=== PATIENT | female | born 1985 | race Caucasian/White ===

== ENCOUNTER 2019-08-17 02:15 | Inpatient (IN) | payer BC ==
[~2019-08-17 02:15] MED LIST: Bupivacaine 0.25% 10 ML SDV ONE
[2019-08-17] MEDS ORDERED: Nalbuphine 10 MG/ML Syringe IVPUSH PRN (03:03)
[2019-08-17] MEDS ORDERED: Lidocaine 1% 50 ML MDV INJECT ONE (03:03)
[2019-08-17] MEDS ORDERED: Sodium Chloride 0.9% 10 ML Syringe FLUSH PRN (03:03)
[2019-08-17] MEDS ORDERED: Ondansetron 4 MG/2 ML SDV IVPUSH PRN (03:03)
[2019-08-17] MEDS ORDERED: Calcium Carbonate 500 MG Tab.Chew PO PRN (03:03)
[2019-08-17] MEDS ORDERED: Oxytocin/Lactated Ringers 10 UNIT/1,000 ML BAG IV SCH (03:15)
[2019-08-17] MEDS: Lactated Ringers 1,000 ML IV SCH ×4 (03:43→17:07)
[2019-08-17] MEDS: Oxytocin/Lactated Ringers 10 UNIT/1,000 ML BAG IV SCH ×2 (03:44→17:06)
[2019-08-17] MEDS ORDERED: fentaNYL 100 MCG/2 ML SDV EPIDUR PRN (05:14)
[2019-08-17] MEDS ORDERED: fentaNYL/Bupivacaine/NS 2 MCG-0.125% 250 ML EPIDUR PRN (05:14)
[2019-08-17] MEDS ORDERED: diphenhydrAMINE 50 MG/ML SDV IVPUSH PRN (05:14)
[2019-08-17] MEDS ORDERED: ePHEDrine 50 MG/ML SDV IVPUSH PRN (05:14)
[2019-08-17] MEDS: Bupivacaine/fentaNYL/NS 100 ML Bag EPIDUR PRN ×2 (05:29→17:02)
--- NOTE | 2019-08-17 05:46 | PCM.PREANE ---
Preanesthetic Assessment - Procedure Proposed Procedure: epidural - Anesthesia/Transfusion/Family Hx Anesthesia History: Prior Anesthesia Without Reaction Family History of Anesthesia Reaction: No Transfusion History: No Prior Transfusion(s) - Review of Systems General: Fatigue Pulmonary: No Symptoms Cardiovascular: No Symptoms Gastrointestinal: Abdominal Pain (labor) Neurological: No Symptoms Other: Reports: None - Physical Assessment Vital Signs: Last Vital Signs Temp 36.5 C 08/17/19 02:28 Pulse 62 08/17/19 02:28 Resp 16 08/17/19 02:28 BP 143/71 H 08/17/19 02:28 Pulse Ox 100 08/17/19 02:28 Height: 1.75 m Weight: 104.689 kg ASA Class: 2 Mental Status: Alert & Oriented x3 Airway Class: Mallampati = 1 Dentition: Reports: Normal Dentition Thyro-Mental Finger Breadths: 3 Mouth Opening Finger Breadths: 3 ROM/Head Extension: Full Lungs: Clear to Auscultation, Normal Respiratory Effort Cardiovascular: Regular Rate, Regular Rhythm - Lab Values: Laboratory Last Values WBC 12.67 K/mm3 (3.98-10.04) H 08/17/19 03:24 RBC 3.97 M/mm3 (3.98-5.22) L 08/17/19 03:24 Hgb 11.6 gm/dl (11.2-15.7) 08/17/19 03:24 Hct 34.7 % (34.1-44.9) 08/17/19 03:24 MCV 87.4 fl (79.4-94.8) 08/17/19 03:24 MCH 29.2 pg (25.6-32.2) 08/17/19 03:24 MCHC 33.4 g/dl (32.2-35.5) 08/17/19 03:24 RDW Std Deviation 44.2 fL (36.4-46.3) 08/17/19 03:24 Plt Count 164 K/mm3 (182-369) L 08/17/19 03:24 MPV 9.3 fl (9.4-12.3) L 08/17/19 03:24 Neut % (Auto) 77.1 % (34.0-71.1) H 08/17/19 03:24 Lymph % (Auto) 16.0 % (19.3-51.7) L 08/17/19 03:24 [place] % (Auto) 5.0 % (4.7-12.5) 08/17/19 03:24 Eos % (Auto) 0.6 (0.7-5.8) L 08/17/19 03:24 Baso % (Auto) 0.2 % (0.1-1.2) 08/17/19 03:24 Neut # (Auto) 9.77 K/mm3 (1.56-6.13) H 08/17/19 03:24 Lymph # (Auto) 2.03 K/mm3 (1.18-3.74) 08/17/19 03:24 [place] # (Auto) 0.63 K/mm3 (0.24-0.36) H 08/17/19 03:24 Eos # (Auto) 0.08 K/mm3 (0.04-0.36) 08/17/19 03:24 Baso # (Auto) 0.02 K/mm3 (0.01-0.08) 08/17/19 03:24 Manual Slide Review Normal smear 08/17/19 03:24 Blood Type O POSITIVE 08/17/19 03:24 Gel Antibody Screen Negative 08/17/19 03:24 - Allergies Allergies/Adverse Reactions: Allergies Allergy/AdvReac Type Severity Reaction Status Date / Time No Known Allergies Allergy Verified 08/17/19 04:01 - Anesthesia Plan Pre-Op Medication Ordered: None - Acknowledgements Anesthesia Type Planned: Epidural Pt an Appropriate Candidate for the Planned Anesthesia: Yes Alternatives and Risks of Anesthesia Discussed w Pt/Guardian: Yes Pt/Guardian Understands and Agrees with Anesthesia Plan: Yes PreAnesthesia Questionnaire HEENT History: Reports: Allergic Rhinitis, Other (See Below) Other HEENT History: Wears glasses/contacts Cardiovascular History: Reports: None Respiratory History: Reports: Asthma Gastrointestinal History: Reports: GERD Other Gastrointestinal History: rectal bleeding Genitourinary History: Reports: None 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: , 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 Other OB/BYN History: breast enhancement, colposcopy, HSV, miscarriage, ovarian cyst, pre-menstrual dysphoric disorder Musculoskeletal History: Reports: None Neurological History: Reports: Migraines Psychiatric History: Reports: None Endocrine/Metabolic History: Reports: Obesity/BMI 30+ Hematologic History: Reports: Other (See Below) Other Hematologic History: Factor V Leiden (heterozygous) Immunologic History: Reports: None Oncologic (Cancer) History: Reports: None Dermatologic History: Reports: None - Infectious Disease History Infectious Disease History: Reports: Herpes - Past Surgical History HEENT Surgical History: Reports: Oral Surgery, Other (See Below) Other HEENT Surgeries/Procedures: rhinoplasty GI Surgical History: Reports: Cholecystectomy Female Surgical History: Reports: Breast Implant, D&C - SUBSTANCE USE Smoking Status *Q: Never Smoker Recreational Drug Use History: No - HOME MEDS Home Medications: Home Meds Acyclovir 400 mg PO TID 08/17/19 [History] Aspirin [Halfprin] 81 mg PO DAILY 08/17/19 [History] No122/Iron/Folic Acid [ Multi Tablet] 1 each PO DAILY 08/17/19 [History] - CURRENT (IN HOUSE) MEDS Current Meds: Current Medications Calcium Carbonate/Glycine (Tums) 1,000 mg PO Q2H PRN PRN Reason: Indigestion Diphenhydramine HCl (Benadryl) 25 mg IVPUSH Q6H PRN PRN Reason: Itching Ephedrine Sulfate (Ephedrine Sulfate) 5 mg IVPUSH ASDIRECTED PRN PRN Reason: HYPOTENTSION Fentanyl (Sublimaze) 100 mcg EPIDUR Q3H PRN PRN Reason: Pain Last Admin: 08/17/19 05:29 Dose: 100 mcg Fentanyl/Bupivacaine HCl (Fentanyl/Bupivacaine/Ns 2 Mcg-0.125% 100 Ml) 0 ml EPIDUR CONTINUOUS PRN PRN Reason: Pain Last Admin: 08/17/19 05:29 Dose: 100 ml Lactated Ringer's (Ringers, Lactated) 1,000 mls @ 100 mls/hr IV ASDIRECTED JUAN Last Admin: 08/17/19 03:43 Dose: 100 mls/hr Oxytocin/Lactated Ringer's (Pitocin In Lr 10 Units/1,000 Ml) 10 unit in 1,000 mls @ 12 mls/hr IV TITRATE JUAN; Protocol Last Titration: 08/17/19 05:44 Dose: 4 munits/min, 24 mls/hr Oxytocin/Lactated Ringer's (Pitocin In Lr 10 Units/1,000 Ml) 10 unit in 1,000 mls @ 500 mls/hr IV .CONTINUOUS JUAN Nalbuphine HCl (Nubain) 10 mg IVPUSH Q2H PRN PRN Reason: Pain Ondansetron HCl (Zofran) 4 mg IVPUSH Q4H PRN PRN Reason: Nausea/Vomiting Sodium Chloride (Saline Flush) 10 ml FLUSH ASDIRECTED PRN PRN Reason: Keep Vein Open Discontinued Medications Fentanyl/Bupivacaine HCl (Fentanyl/Bupivacaine/Ns 2 Mcg-0.125% 250 Ml) 0 ml EPIDUR CONTINUOUS PRN PRN Reason: Pain Lidocaine HCl (Xylocaine 1%) 20 ml INJECT ONETIME ONE Stop: 08/17/19 03:04
--- NOTE | 2019-08-17 09:23 | PCM.LDHP ---
L&D History of Present Illness - General Date of Service: 08/17/19 Admit Problem/Dx: Patient Status Order with Admit Dx/Problem 08/17/19 02:28 Patient Status [ADT] Routine 08/17/19 03:03 Patient Status [ADT] Routine Admission Diagnosis/Problem Admission Diagnosis/Problem Active labor Source of Information: Patient - History of Present Illness Introduction:: Missy Mckeon (Andrea) is a 34 year old -0-1-0 at 39 weeks 5 days by LMP consistent with a 6-week ultrasound (W[facility] 08/19/2019) who presents for evaluation of spontaneous rupture membranes. She reports that in the evening of 08/16/2019 between 9:30-10:00 at night she had a large gush of clear fluid that continued throughout the evening and into the early education teacher. She contacted labor and delivery and was recommended to come in for evaluation. She states that initially she was having irregular contractions that were about every 10 minutes apart and were not overly strong or painful. She reports that she had been having good movement prior to rupture of membranes. On initial evaluation she was noted to have large amount of clear fluid and was felt to have grossly ruptured membranes. Timing/Duration: Reports: sudden onset (Between 9:30-10 at night on 08/16/2019) Location, : Reports: Lower back, Pelvic Quality: Reports: Pressure, Throbbing Severity: Severe Pain Score: 8 Improves with: Reports: None Worsens with: Reports: None Present Illness Comments:: Missy Mckeon (Andrea) is a 34-year-old -0-1-0 female at 39 weeks 5 days by LMP consistent with a 6-week ultrasound who presents with spontaneous rupture membranes. She has had routine care with Dr. Gonzalez starting at 6 weeks gestational age. She received Tdap vaccine on 07/02/2019. Her has been complicated by significant nausea and vomiting throughout the despite use of medications. She states that it is worse in the morning and will resolve throughout the day. She started on acyclovir 400 mg 3 times daily at 36 weeks gestational age for genital HSV prophylaxis. She has a heterozygous factor V Leiden mutation and has been on aspirin 81 mg daily throughout the for prophylaxis. Her is complicated by: * Factor V Leiden mutation, heterozygous -patient with heterozygous factor V Leiden mutation that was diagnosed prior to . She has multiple family members that have been positive. She has not had a history of DVT. Patient was started on aspirin 81 mg daily as prophylaxis to prevent complications with the . * History of genital HSV, patient has been on acyclovir for 100 mg 3 times daily starting at 36 weeks gestational age * Obesity with initial BMI of 30 and current BMI of 34.1 * Nausea and vomiting throughout the * Exercise-induced asthma labs Blood type: O+ Antibody screen: Negative First trimester hematocrit/hemoglobin: 38.2%/13.0 on 01/29/2019 Platelets: 196 on 01/29/2019 Urine culture: Negative, mixed delvis suggestive of contamination Rubella status: Immune Hepatitis B surface antigen: Negative RPR: Negative HIV: Negative Gonorrhea: Negative Chlamydia: Negative anatomy ultrasound: Normal anatomy ultrasound, EFW 79th percentile, anterior placenta One hour glucose tolerance test: 112 GBS status: Negative 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 Has been on acyclovir prophylaxis starting at 36 weeks gestational age. - Related Data Allergies/Adverse Reactions: Allergies Allergy/AdvReac Type Severity Reaction Status Date / Time No Known Allergies Allergy Verified 08/17/19 04:01 Home Medications: Home Meds Acyclovir 400 mg PO TID 08/17/19 [History] Aspirin [Halfprin] 81 mg PO DAILY 08/17/19 [History] No122/Iron/Folic Acid [ Multi Tablet] 1 each PO DAILY 08/17/19 [History] Past Medical History HEENT History: Reports: Allergic Rhinitis, Other (See Below) Other HEENT History: Wears glasses/contacts Cardiovascular History: Reports: None Respiratory History: Reports: Asthma (Exercise-induced) Gastrointestinal History: Reports: GERD Other Gastrointestinal History: rectal bleeding Genitourinary History: Reports: None 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: , 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 : 2 Para: 0 Other OB/BYN History: breast enhancement, colposcopy, HSV, miscarriage, ovarian cyst, pre-menstrual dysphoric disorder Musculoskeletal History: Reports: None Neurological History: Reports: Migraines Psychiatric History: Reports: None Endocrine/Metabolic History: Reports: Obesity/BMI 30+ Hematologic History: Reports: Other (See Below) Other Hematologic History: Factor V Leiden (heterozygous) Immunologic History: Reports: None Oncologic (Cancer) History: Reports: None Dermatologic History: Reports: None - Infectious Disease History Infectious Disease History: Reports: Herpes (genital) - Past Surgical History HEENT Surgical History: Reports: Oral Surgery, Other (See Below) Other HEENT Surgeries/Procedures: rhinoplasty GI Surgical History: Reports: Cholecystectomy Female Surgical History: Reports: Breast Implant, D&C Social & Family History - Family History Family Medical History: Noncontributory - Tobacco Use Smoking Status *Q: Never Smoker - Tobacco Core Measures Tobacco Use/Smoking Within Last 30 Days: No Smokeless Tobacco Use in Last 30 Days: No - Alcohol Use Alcohol Use History: No - Recreational Drug Use Recreational Drug Use: No - Living Situation & Occupation Living situation: Reports: , with Spouse Occupation: Employed H&P Review of Systems - Review of Systems: Review Of Systems: See Below General: Denies: Fever, Chills, Malaise, Weakness, Fatigue HEENT: Reports: Glasses, Sinus Congestion (Mild). Denies: Headaches, Rhinitis, Post Nasal Drip, Sore Throat, Visual Changes Pulmonary: Denies: Shortness of Breath, Wheezing, Pleuritic Chest Pain, Cough Cardiovascular: Denies: Chest Pain, Palpitations, Dyspnea on Exertion, Orthopnea Gastrointestinal: Reports: Diarrhea (Several episodes of diarrhea on 08/16/2019), Nausea, Vomiting. Denies: Abdominal Pain, Constipation Genitourinary: Denies: Dysuria, Frequency, Burning, Pain, Urgency Musculoskeletal: Reports: Back Pain (Hip pain of ) Skin: Denies: Rash, Lesions Psychiatric: Denies: Depression, Anxiety Immunologic: Reports: Seasonal Allergy L&D Exam - Exam Exam: See Below - Vital Signs Vital Signs: Last Vital Signs Temp 36.5 C 08/17/19 02:28 Pulse 62 08/17/19 07:30 Resp 16 08/17/19 02:28 BP 118/55 L 08/17/19 06:01 Pulse Ox 100 08/17/19 02:28 Weight: 104.689 kg - OB Specific Contraction Duration (sec): 45-60 Contraction Frequency (min): 1-3 Contraction Intensity: Moderate to Strong Movement: Active Heart Tones: Present Heart Tones per Min: 120 Heart Rate (FHR) Variability: Moderate (6-25 bmp) (positive 15 x 15 accelerations, no decelerations) Presentation: Vertex Estimated Weight: 7.5-8 lbs by Leopolds - Louise Score Lousie Score Cervix Position: Anterior Louise Score Consistency: Soft Louise Score Effacement: >80% (90%) Louise Score Dilation: 3-4 cm (3 cm) Louise Score Infant's Station: -2 Louise Score Total: 10 - Exam General: Alert, Oriented HEENT: Conjunctiva Clear, EOMI Neck: Supple, Trachea Midline Lungs: Clear to Auscultation, Normal Respiratory Effort Cardiovascular: Regular Rate, Regular Rhythm GI/Abdominal Exam: Soft, Non-Tender, Other (Gravid). No: Guarding, Rigid, Rebound Genitourinary: Normal external exam Extremities: Normal Inspection, No Pedal Edema, Other (SCD's in place) Skin: Warm, Dry, Intact Psychiatric: Alert, Normal Affect, Normal Mood - Patient Data Lab Results Last 24 hrs: Laboratory Results - last 24 hr 08/17/19 08/17/19 Range/Units 03:24 03:24 WBC 12.67 H (3.98-10.04) K/mm3 RBC 3.97 L (3.98-5.22) M/mm3 Hgb 11.6 (11.2-15.7) gm/dl Hct 34.7 (34.1-44.9) % MCV 87.4 (79.4-94.8) fl MCH 29.2 (25.6-32.2) pg MCHC 33.4 (32.2-35.5) g/dl RDW Std Deviation 44.2 (36.4-46.3) fL Plt Count 164 L (182-369) K/mm3 MPV 9.3 L (9.4-12.3) fl Neut % (Auto) 77.1 H (34.0-71.1) % Lymph % (Auto) 16.0 L (19.3-51.7) % [place] % (Auto) 5.0 (4.7-12.5) % Eos % (Auto) 0.6 L (0.7-5.8) Baso % (Auto) 0.2 (0.1-1.2) % Neut # (Auto) 9.77 H (1.56-6.13) K/mm3 Lymph # (Auto) 2.03 (1.18-3.74) K/mm3 [place] # (Auto) 0.63 H (0.24-0.36) K/mm3 Eos # (Auto) 0.08 (0.04-0.36) K/mm3 Baso # (Auto) 0.02 (0.01-0.08) K/mm3 Manual Slide Review Normal smear Blood Type O POSITIVE Gel Antibody Screen Negative Result Diagrams: 08/17/19 03:24 - Problem List (1) 39 weeks gestation of SNOMED Code(s): 42176637 ICD Code: Z3A.39 - 39 WEEKS GESTATION OF Status: Acute Current Visit: Yes (2) History of herpes genitalis SNOMED Code(s): 218071838 ICD Code: Z86.19 - PERSONAL HISTORY OF OTHER INFECTIOUS AND PARASITIC DISEASES Status: Acute Current Visit: Yes (3) Heterozygous factor V Leiden affecting in third trimester, antepartum SNOMED Code(s): 091908435 ICD Code: O99.113 - OTH DIS OF BLD/BLD-FORM ORG/IMMUN MECHNSM COMP PREG, 3RD TRI; D68.51 - ACTIVATED PROTEIN C RESISTANCE Status: Acute Current Visit: Yes (4) Obesity affecting in third trimester SNOMED Code(s): 866537777941, 059671169266 ICD Code: O99.213 - OBESITY COMPLICATING , THIRD TRIMESTER Status : Acute Current Visit: Yes (5) Nausea/vomiting in SNOMED Code(s): 23006766, 770510499 ICD Code: O21.9 - VOMITING OF , UNSPECIFIED Status: Acute Current Visit: Yes Problem List Initiated/Reviewed/Updated: Yes Orders Last 24hrs: Active Orders 24 hr Category Date Time Status Patient Status [ADT] Routine ADT 08/17/19 03:03 Active Activity as Tolerated [RC] PFP Care 08/17/19 03:03 Active Antiembolic Devices [RC] PER UNIT ROUTINE Care 08/17/19 04:47 Active Communication Order [RC] ASDIRECTED Care 08/17/19 03:03 Active Communication Order [RC] ASDIRECTED Care 08/17/19 03:03 Active Communication Order [RC] ASDIRECTED Care 08/17/19 03:03 Active Notify Provider [RC] ASDIRECTED Care 08/17/19 03:03 Active Notify Provider [RC] ASDIRECTED Care 08/17/19 05:14 Active Notify Provider [RC] PFP Care 08/17/19 03:03 Active Notify Provider [RC] PRN Care 08/17/19 03:03 Active Peripheral IV Care [RC] Q2HR Care 08/17/19 03:04 Active Urinary Catheter Assessment [RC] ASDIRECTED Care 08/17/19 03:03 Active Regular Diet [DIET] Diet 08/17/19 Breakfast Active RAPID PLASMA REAGIN,RPR [CHEM] Stat Lab 08/17/19 03:24 Received Acyclovir [Zovirax] Med 08/17/19 15:00 Ordered 400 mg PO TID Bupivacaine/fentaNYL/NS [fentaNYL/Bupivacaine/NS 2 MCG- Med 08/17/19 05:23 Active 0.125% 100 ML] 0 ml EPIDUR CONTINUOUS PRN Calcium Carbonate [Tums] Med 08/17/19 03:03 Active 1,000 mg PO Q2H PRN Lactated Ringers [Ringers, Lactated] 1,000 ml Med 08/17/19 03:15 Active IV ASDIRECTED Nalbuphine [Nubain] Med 08/17/19 03:03 Active 10 mg IVPUSH Q2H PRN Ondansetron [Zofran] Med 08/17/19 03:03 Active 4 mg IVPUSH Q4H PRN Oxytocin/Lactated Ringers [Pitocin in LR 10 Units/1,000 Med 08/17/19 03:15 Active ML] 10 unit in 1,000 ml IV .CONTINUOUS Oxytocin/Lactated Ringers [Pitocin in LR 10 Units/1,000 Med 08/17/19 03:15 Active ML] 10 unit in 1,000 ml IV TITRATE Sodium Chloride 0.9% [Saline Flush] Med 08/17/19 03:03 Active 10 ml FLUSH ASDIRECTED PRN diphenhydrAMINE [Benadryl] Med 08/17/19 05:14 Active 25 mg IVPUSH Q6H PRN ePHEDrine [ePHEDrine sulfate] Med 08/17/19 05:14 Active 5 mg IVPUSH ASDIRECTED PRN fentaNYL [Sublimaze] Med 08/17/19 05:14 Active 100 mcg EPIDUR Q3H PRN Electronic Heart Tones Ext w TOCO [WOMSER] Oth 08/17/19 03:03 Ordered Routine Electronic Heart Tones Internal [WOMSER] Per Unit Oth 08/17/19 03:03 Ordered Routine Peripheral IV Insertion Adult [OM.PC] Routine Oth 08/17/19 03:03 Ordered SCD [Sequential Compression Device] [OM.PC] Routine Oth 08/17/19 04:47 Ordered Resuscitation Status Routine Resus Stat 08/17/19 02:28 Ordered Medication Orders Calcium Carbonate/Glycine (Tums) 1,000 mg PO Q2H PRN PRN Reason: Indigestion Diphenhydramine HCl (Benadryl) 25 mg IVPUSH Q6H PRN PRN Reason: Itching Ephedrine Sulfate (Ephedrine Sulfate) 5 mg IVPUSH ASDIRECTED PRN PRN Reason: HYPOTENTSION Fentanyl (Sublimaze) 100 mcg EPIDUR Q3H PRN PRN Reason: Pain Last Admin: 08/17/19 05:29 Dose: 100 mcg Fentanyl/Bupivacaine HCl (Fentanyl/Bupivacaine/Ns 2 Mcg-0.125% 100 Ml) 0 ml EPIDUR CONTINUOUS PRN PRN Reason: Pain Last Admin: 08/17/19 05:29 Dose: 100 ml Lactated Ringer's (Ringers, Lactated) 1,000 mls @ 100 mls/hr IV ASDIRECTED JUAN Last Admin: 08/17/19 06:11 Dose: 100 mls/hr Infusion: 08/17/19 06:11 Dose: 100 mls/hr Admin: 08/17/19 03:43 Dose: 100 mls/hr Oxytocin/Lactated Ringer's (Pitocin In Lr 10 Units/1,000 Ml) 10 unit in 1,000 mls @ 12 mls/hr IV TITRATE JUAN; Protocol Last Titration: 08/17/19 09:00 Dose: 14 munits/min, 84 mls/hr Titration: 08/17/19 08:10 Dose: 12 munits/min, 72 mls/hr Titration: 08/17/19 07:29 Dose: 10 munits/min, 60 mls/hr Titration: 08/17/19 07:00 Dose: 8 munits/min, 48 mls/hr Titration: 08/17/19 06:28 Dose: 6 munits/min, 36 mls/hr Titration: 08/17/19 05:44 Dose: 4 munits/min, 24 mls/hr Titration: 08/17/19 05:22 Dose: 0 munits/min, 0 mls/hr Titration: 08/17/19 04:19 Dose: 4 munits/min, 24 mls/hr Admin: 08/17/19 03:44 Dose: 2 munits/min, 12 mls/hr Oxytocin/Lactated Ringer's (Pitocin In Lr 10 Units/1,000 Ml) 10 unit in 1,000 mls @ 500 mls/hr IV .CONTINUOUS JUAN Nalbuphine HCl (Nubain) 10 mg IVPUSH Q2H PRN PRN Reason: Pain Ondansetron HCl (Zofran) 4 mg IVPUSH Q4H PRN PRN Reason: Nausea/Vomiting Last Admin: 08/17/19 09:05 Dose: 4 mg Sodium Chloride (Saline Flush) 10 ml FLUSH ASDIRECTED PRN PRN Reason: Keep Vein Open Assessment/Plan Comment:: * Refer to observation for spontaneous rupture of membranes * Continue Pitocin for augmentation of labor with irregular contractions upon arrival * Continuous monitoring * Place IV and have Lactated Ringer's at 125 ml/hr * May have small amounts of regular diet * Activity as tolerated * Patient with epidural for anesthesia * Plans to breast-feed after delivery * Patient to continue acyclovir for 100 mg 3 times daily today. Patient may continue after delivery to reduce risk of outbreak after delivery * Patient currently on aspirin 81 mg daily for prophylaxis for factor V Leiden heterozygous status. Consider prophylactic anticoagulation after delivery given patient's increased risk status with obesity and BMI of 34. * Anticipate vaginal delivery unless otherwise indicated Tima Neal MD 9:49 AM 08/17/2019
[2019-08-17] MEDS ORDERED: Oxytocin/Lactated Ringers 20 UNIT/1,000 ML BAG IV SCH (12:30)
[2019-08-17] MEDS ORDERED: Acyclovir 200 MG Cap PO SCH (15:00)
[2019-08-17] MEDS ORDERED: Acetaminophen 325 MG Tab PO PRN (16:15)
--- NOTE | 2019-08-17 17:10 | PCM.PNLD ---
Labor Progress Note - VS & Meds Vital Signs: Last Vital Signs Temp 36.5 C 08/17/19 02:28 Pulse 66 08/17/19 12:00 Resp 16 08/17/19 02:28 BP 118/55 L 08/17/19 06:01 Pulse Ox 100 08/17/19 02:28 Active Medications: Current Medications Acetaminophen (Tylenol) 650 mg PO Q4H PRN PRN Reason: Headache Last Admin: 08/17/19 16:45 Dose: 650 mg Acyclovir (Zovirax) 400 mg PO TID JUAN Last Admin: 08/17/19 16:46 Dose: Not Given Calcium Carbonate/Glycine (Tums) 1,000 mg PO Q2H PRN PRN Reason: Indigestion Diphenhydramine HCl (Benadryl) 25 mg IVPUSH Q6H PRN PRN Reason: Itching Ephedrine Sulfate (Ephedrine Sulfate) 5 mg IVPUSH ASDIRECTED PRN PRN Reason: HYPOTENTSION Fentanyl (Sublimaze) 100 mcg EPIDUR Q3H PRN PRN Reason: Pain Last Admin: 08/17/19 05:29 Dose: 100 mcg Fentanyl/Bupivacaine HCl (Fentanyl/Bupivacaine/Ns 2 Mcg-0.125% 100 Ml) 0 ml EPIDUR CONTINUOUS PRN PRN Reason: Pain Last Admin: 08/17/19 17:02 Dose: 100 ml Lactated Ringer's (Ringers, Lactated) 1,000 mls @ 100 mls/hr IV ASDIRECTED JUAN Last Admin: 08/17/19 10:01 Dose: 100 mls/hr Oxytocin/Lactated Ringer's (Pitocin In Lr 10 Units/1,000 Ml) 10 unit in 1,000 mls @ 12 mls/hr IV TITRATE JUAN; Protocol Last Titration: 08/17/19 16:43 Dose: 14 munits/min, 84 mls/hr Oxytocin/Lactated Ringer's (Pitocin In Lr 10 Units/1,000 Ml) 10 unit in 1,000 mls @ 500 mls/hr IV .CONTINUOUS JUAN Oxytocin/Lactated Ringer's (Pitocin In Lr 20 Units/1,000 Ml) 20 unit in 1,000 mls @ 60 mls/hr IV TITRATE JUAN; Protocol Nalbuphine HCl (Nubain) 10 mg IVPUSH Q2H PRN PRN Reason: Pain Ondansetron HCl (Zofran) 4 mg IVPUSH Q4H PRN PRN Reason: Nausea/Vomiting Last Admin: 08/17/19 09:05 Dose: 4 mg Sodium Chloride (Saline Flush) 10 ml FLUSH ASDIRECTED PRN PRN Reason: Keep Vein Open Discontinued Medications Fentanyl/Bupivacaine HCl (Fentanyl/Bupivacaine/Ns 2 Mcg-0.125% 250 Ml) 0 ml EPIDUR CONTINUOUS PRN PRN Reason: Pain Lidocaine HCl (Xylocaine 1%) 20 ml INJECT ONETIME ONE Stop: 08/17/19 03:04 - Uterine Contractions Contraction Frequency (min): 2-4 Contraction Duration (sec): 45-60 Contraction Intensity: Strong - Monitoring Monitor Mode: Doppler/Auscultation Heart Rate (FHR) Baseline: 120 Heart Rate (FHR) Per Doppler: 120 Heart Rate (FHR) Variability: Moderate (6-25 bmp) (positive 15 x 15 accelerations, no decelerations) Accelerations: Present, 15x15 Decelerations: Late, Variable, Intermittent (<50% x 20 min) Strip Review: Category II - Vaginal Exam Dilation (cm): 9 Effacement (Percent): 100 Station: 0 Cervical Position: Anterior Sterile Vaginal Exam Performed By: Tima Neal Vaginal Exam Comment: Anterior, right and left sided cervical lip - Labor Progress (Free Text) Labor Progress: Patient making good progress at this time. Continue Pitocin for augmentation of labor Routine vitals heart monitoring overall reassuring at this time with category 2 tracing. Has intermittent variable and rare late decelerations at this time. Previously had variable decelerations that were occurring with Pitocin at 22 mU/ min and improved with decrease of Pitocin rate Anticipate vaginal delivery unless otherwise indicated. Tima Neal MD 5:10 PM 08/17/2019
[2019-08-17] MEDS ORDERED: Misoprostol 200 MCG Tab ONE (19:12)
[2019-08-17] MEDS ORDERED: Misoprostol 200 MCG Tab PO ONE (19:16)
--- NOTE | 2019-08-17 19:23 | PCM.DEL ---
L & D Note - General Info Date of Service: 08/17/19 - Delivery Note Labor: Augmented by Oxytocin Delivery Outcome: Livebirth Delivery Method: Spontaneous Vaginal Delivery-Single Delivery Mode: Spontaneous Presentation: Right Occiput Anterior (IAN) Nuchal Cord: None Anesthesia Type: Epidural Amniotic Fluid Description: Clear Episiotomy Type: None Laceration: 2nd Degree, Perineal Suture type: Vicryl Suture size: 2-0 Placenta: Intact, Spontaneous Cord: 3 Vessels Estimated Blood Loss: 300 Resuscitation Needed: Yes [place]: Bulb Syringe, Stimulated, Warmed, [place] Used, Warmer Used Delivery Comments (Free Text/Narrative):: Patient found to be complete and began pushing. With maternal pushing effort head delivered from IAN presentation. No nuchal cord present. With gentle downward traction the shoulders and body delivered. Infant placed on maternal abdomen. Cord clamped and cut. Cord blood obtained. Placenta allowed time to separate and expelled intact. Inspection of the perineum showed a 2nd degree laceration which was repaired with a 2-0 vicryl. Did have some poor uterine tone at this time which responded to 600 mcg of buccal cytotec. - General Info Date of Service: 08/18/19 - Patient Data Vitals - Most Recent: Last Vital Signs Temp 36.5 C 08/17/19 02:28 Pulse 66 08/17/19 12:00 Resp 16 08/17/19 02:28 BP 118/55 L 08/17/19 06:01 Pulse Ox 100 08/17/19 02:28 Weight - Most Recent: 104.689 kg I&O - Last 24 Hours: Intake & Output 08/17/19 08/17/19 08/17/19 06:59 14:59 22:59 Intake Total 330 Balance 330 Lab Results Last 24 Hours: Laboratory Results - last 24 hr 08/17/19 08/17/19 Range/Units 03:24 03:24 WBC 12.67 H (3.98-10.04) K/mm3 RBC 3.97 L (3.98-5.22) M/mm3 Hgb 11.6 (11.2-15.7) gm/dl Hct 34.7 (34.1-44.9) % MCV 87.4 (79.4-94.8) fl MCH 29.2 (25.6-32.2) pg MCHC 33.4 (32.2-35.5) g/dl RDW Std Deviation 44.2 (36.4-46.3) fL Plt Count 164 L (182-369) K/mm3 MPV 9.3 L (9.4-12.3) fl Neut % (Auto) 77.1 H (34.0-71.1) % Lymph % (Auto) 16.0 L (19.3-51.7) % Imperial % (Auto) 5.0 (4.7-12.5) % Eos % (Auto) 0.6 L (0.7-5.8) Baso % (Auto) 0.2 (0.1-1.2) % Neut # (Auto) 9.77 H (1.56-6.13) K/mm3 Lymph # (Auto) 2.03 (1.18-3.74) K/mm3 Imperial # (Auto) 0.63 H (0.24-0.36) K/mm3 Eos # (Auto) 0.08 (0.04-0.36) K/mm3 Baso # (Auto) 0.02 (0.01-0.08) K/mm3 Manual Slide Review Normal smear Blood Type O POSITIVE Gel Antibody Screen Negative Med Orders - Current: Current Medications Acetaminophen (Tylenol) 650 mg PO Q4H PRN PRN Reason: Headache Last Admin: 08/17/19 16:45 Dose: 650 mg Acyclovir (Zovirax) 400 mg PO TID JUAN Last Admin: 08/17/19 16:46 Dose: Not Given Calcium Carbonate/Glycine (Tums) 1,000 mg PO Q2H PRN PRN Reason: Indigestion Diphenhydramine HCl (Benadryl) 25 mg IVPUSH Q6H PRN PRN Reason: Itching Ephedrine Sulfate (Ephedrine Sulfate) 5 mg IVPUSH ASDIRECTED PRN PRN Reason: HYPOTENTSION Fentanyl (Sublimaze) 100 mcg EPIDUR Q3H PRN PRN Reason: Pain Last Admin: 08/17/19 05:29 Dose: 100 mcg Fentanyl/Bupivacaine HCl (Fentanyl/Bupivacaine/Ns 2 Mcg-0.125% 100 Ml) 0 ml EPIDUR CONTINUOUS PRN PRN Reason: Pain Last Admin: 08/17/19 17:02 Dose: 100 ml Lactated Ringer's (Ringers, Lactated) 1,000 mls @ 100 mls/hr IV ASDIRECTED JUAN Last Admin: 08/17/19 17:07 Dose: 100 mls/hr Oxytocin/Lactated Ringer's (Pitocin In Lr 10 Units/1,000 Ml) 10 unit in 1,000 mls @ 12 mls/hr IV TITRATE JUAN; Protocol Last Titration: 08/17/19 19:04 Dose: 500 mls/hr Oxytocin/Lactated Ringer's (Pitocin In Lr 10 Units/1,000 Ml) 10 unit in 1,000 mls @ 500 mls/hr IV .CONTINUOUS JUAN Oxytocin/Lactated Ringer's (Pitocin In Lr 20 Units/1,000 Ml) 20 unit in 1,000 mls @ 60 mls/hr IV TITRATE JUAN; Protocol Nalbuphine HCl (Nubain) 10 mg IVPUSH Q2H PRN PRN Reason: Pain Ondansetron HCl (Zofran) 4 mg IVPUSH Q4H PRN PRN Reason: Nausea/Vomiting Last Admin: 08/17/19 09:05 Dose: 4 mg Sodium Chloride (Saline Flush) 10 ml FLUSH ASDIRECTED PRN PRN Reason: Keep Vein Open Discontinued Medications Fentanyl/Bupivacaine HCl (Fentanyl/Bupivacaine/Ns 2 Mcg-0.125% 250 Ml) 0 ml EPIDUR CONTINUOUS PRN PRN Reason: Pain Lidocaine HCl (Xylocaine 1%) 20 ml INJECT ONETIME ONE Stop: 08/17/19 03:04 Misoprostol (Cytotec) Confirm Administered Dose 600 mcg .ROUTE .STK-MED ONE Stop: 08/17/19 19:13 Misoprostol (Cytotec) 600 mcg PO ONETIME ONE Stop: 08/17/19 19:17 - Problem List & Annotations (1) 39 weeks gestation of SNOMED Code(s): 09430154 Code(s): Z3A.39 - 39 WEEKS GESTATION OF Status: Acute Current Visit: Yes (2) Heterozygous factor V Leiden affecting in third trimester, antepartum SNOMED Code(s): 029753899 Code(s): O99.113 - OTH DIS OF BLD/BLD-FORM ORG/IMMUN MECHNSM COMP PREG, 3RD TRI; D68.51 - ACTIVATED PROTEIN C RESISTANCE Status: Acute Current Visit: Yes (3) Vaginal delivery SNOMED Code(s): 392970332 Code(s): O80 - ENCOUNTER FOR FULL-TERM UNCOMPLICATED DELIVERY Status: Acute Current Visit: Yes - Problem List Review Problem List Initiated/Reviewed/Updated: Yes - Assessment Assessment:: PPD#0 - Plan Plan:: * Routine cares * Breast feeding * Prophylactic lovenox while in house. Will continue to discuss with patient plan for anticoagulation once gets discharged * Discharge home in 1-2 days
[2019-08-17] MEDS ORDERED: Benzocaine/Menthol 20%-0.5% Spray 56 GM Canister TOP PRN (19:54)
[2019-08-17] MEDS ORDERED: Witch Hazel Medicated Pads 40/Jar TOP PRN (19:54)
[2019-08-17] MEDS ORDERED: Docusate Sodium 100 MG Cap PO PRN (19:54)
[2019-08-17] MEDS: Ibuprofen 600 MG Tab PO PRN (21:53)
--- NOTE | 2019-08-18 07:43 | PCM.PNPP ---
- General Info Date of Service: 08/18/19 Functional Status: Reports: Pain Controlled, Tolerating Diet, Ambulating, Urinating - Review of Systems General: Reports: No Symptoms Pulmonary: Reports: No Symptoms Cardiovascular: Reports: No Symptoms Gastrointestinal: Reports: No Symptoms Genitourinary: Reports: No Symptoms Musculoskeletal: Reports: No Symptoms - Patient Data Vital Signs - Most Recent: Last Vital Signs Temp 36.4 C 08/18/19 03:00 Pulse 61 08/18/19 03:00 Resp 14 08/18/19 03:00 BP 117/60 08/18/19 03:00 Pulse Ox 99 08/18/19 03:00 Weight - Most Recent: 104.689 kg I&O - Last 24 Hours: Intake & Output 08/17/19 08/18/19 08/18/19 22:59 06:59 14:59 Intake Total 1500 Balance 1500 Lab Results - Last 24 Hours: Laboratory Results - last 24 hr 08/17/19 Range/Units 03:24 RPR Non-reactive (NONREACTIVE) Med Orders - Current: Current Medications Acetaminophen (Tylenol) 650 mg PO Q4H PRN PRN Reason: mild pain or fever Benzocaine/Menthol (Dermoplast Pain Relief [place]) 0 gm TOP ASDIRECTED PRN PRN Reason: Perineal Comfort Measure Last Admin: 08/17/19 21:54 Dose: 1 applic Docusate Sodium (Colace) 100 mg PO BID PRN PRN Reason: Constipation Enoxaparin Sodium (Lovenox) 40 mg SUBCUT DAILY [facility] Ibuprofen (Motrin) 600 mg PO Q6H PRN PRN Reason: Mild pain or fever Last Admin: 08/17/19 21:53 Dose: 600 mg Witch Magaly (Tucks) 1 pad TOP ASDIRECTED PRN PRN Reason: Perineal Comfort Measure Last Admin: 08/17/19 21:54 Dose: 1 applic Discontinued Medications Acetaminophen (Tylenol) 650 mg PO Q4H PRN PRN Reason: Headache Last Admin: 08/17/19 16:45 Dose: 650 mg Acyclovir (Zovirax) 400 mg PO TID [facility] Last Admin: 08/17/19 16:46 Dose: Not Given Calcium Carbonate/Glycine (Tums) 1,000 mg PO Q2H PRN PRN Reason: Indigestion Diphenhydramine HCl (Benadryl) 25 mg IVPUSH Q6H PRN PRN Reason: Itching Ephedrine Sulfate (Ephedrine Sulfate) 5 mg IVPUSH ASDIRECTED PRN PRN Reason: HYPOTENTSION Fentanyl (Sublimaze) 100 mcg EPIDUR Q3H PRN PRN Reason: Pain Last Admin: 08/17/19 05:29 Dose: 100 mcg Fentanyl/Bupivacaine HCl (Fentanyl/Bupivacaine/Ns 2 Mcg-0.125% 250 Ml) 0 ml EPIDUR CONTINUOUS PRN PRN Reason: Pain Fentanyl/Bupivacaine HCl (Fentanyl/Bupivacaine/Ns 2 Mcg-0.125% 100 Ml) 0 ml EPIDUR CONTINUOUS PRN PRN Reason: Pain Last Admin: 08/17/19 17:02 Dose: 100 ml Lactated Ringer's (Ringers, Lactated) 1,000 mls @ 100 mls/hr IV ASDIRECTED JUAN Last Admin: 08/17/19 17:07 Dose: 100 mls/hr Oxytocin/Lactated Ringer's (Pitocin In Lr 10 Units/1,000 Ml) 10 unit in 1,000 mls @ 12 mls/hr IV TITRATE JUAN; Protocol Last Titration: 08/17/19 19:04 Dose: 500 mls/hr Oxytocin/Lactated Ringer's (Pitocin In Lr 10 Units/1,000 Ml) 10 unit in 1,000 mls @ 500 mls/hr IV .CONTINUOUS JUAN Oxytocin/Lactated Ringer's (Pitocin In Lr 20 Units/1,000 Ml) 20 unit in 1,000 mls @ 60 mls/hr IV TITRATE JUAN; Protocol Lidocaine HCl (Xylocaine 1%) 20 ml INJECT ONETIME ONE Stop: 08/17/19 03:04 Last Admin: 08/17/19 19:24 Dose: Not Given Misoprostol (Cytotec) Confirm Administered Dose 600 mcg .ROUTE .STK-MED ONE Stop: 08/17/19 19:13 Last Admin: 08/17/19 19:24 Dose: Not Given Misoprostol (Cytotec) 600 mcg PO ONETIME ONE Stop: 08/17/19 19:17 Last Admin: 08/17/19 19:25 Dose: 600 mcg Nalbuphine HCl (Nubain) 10 mg IVPUSH Q2H PRN PRN Reason: Pain Ondansetron HCl (Zofran) 4 mg IVPUSH Q4H PRN PRN Reason: Nausea/Vomiting Last Admin: 08/17/19 09:05 Dose: 4 mg Sodium Chloride (Saline Flush) 10 ml FLUSH ASDIRECTED PRN PRN Reason: Keep Vein Open - Interaction Infant Disposition, : in Room with Family Infant Interaction: Holding Feeding: Attempted ; Nursed Fair/Poor Support Person: - Recovery Exam Fundal Tone: Boggy Fundal Level: At Umbilicus Fundal Placement: Midline Lochia Amount: Small Lochia Color: Rubra/Red Perineum Description: Other (see below) Other Perinuem Description: lac with repair Episiotomy/Laceration: Approximated Bladder Status: Voiding - Exam General: Alert, Oriented, Cooperative GI/Abdominal Exam: Soft, Non-Tender Extremities: Normal Inspection Skin: Warm, Dry, Intact - Problem List & Annotations (1) 39 weeks gestation of SNOMED Code(s): 78475501 Code(s): Z3A.39 - 39 WEEKS GESTATION OF Status: Acute Current Visit: Yes (2) Heterozygous factor V Leiden affecting in third trimester, antepartum SNOMED Code(s): 474832555 Code(s): O99.113 - OTH DIS OF BLD/BLD-FORM ORG/IMMUN MECHNSM COMP PREG, 3RD TRI; D68.51 - ACTIVATED PROTEIN C RESISTANCE Status: Acute Current Visit: Yes (3) Vaginal delivery SNOMED Code(s): 899382267 Code(s): O80 - ENCOUNTER FOR FULL-TERM UNCOMPLICATED DELIVERY Status: Acute Current Visit: Yes - Problem List Review Problem List Initiated/Reviewed/Updated: Yes - My Orders Last 24 Hours: My Active Orders 08/17/19 19:54 Activity as Tolerated [RC] PER UNIT ROUTINE Vital Signs [RC] 03,09,15,21 Acetaminophen [Tylenol] 650 mg PO Q4H PRN Benzocaine/Menthol [Dermoplast Pain Relief [place]] See Dose Instructions TOP ASDIRECTED PRN Docusate Sodium [Colace] 100 mg PO BID PRN Ibuprofen [Motrin] 600 mg PO Q6H PRN witch Magaly [Tucks] 1 pad TOP ASDIRECTED PRN Assess Lochia [WOMSER] Per Unit Routine Assess Uterine Involution [WOMSER] Per Unit Routine Breast Pump [WOMSER] Per Unit Routine Heat Therapy [OM.PC] PRN Ice Therapy [OM.PC] Per Unit Routine Perineal Care [OM.PC] Per Unit Routine Peripheral IV Discontinue [OM.PC] Routine Sitz Bath [OM.PC] Per Unit Routine 08/17/19 Dinner Regular Diet [DIET] 08/18/19 09:00 Enoxaparin [Lovenox] 40 mg SUBCUT DAILY 08/18/19 19:54 Heat Therapy [OM.PC] PRN - Assessment Assessment:: PPD#1 - Plan Plan:: * Routine cares * Breast feeding * Prophylactic lovenox while in house. Will continue for 6 weeks as well * Discharge home likely tomorrow
[2019-08-18] MEDS: Acetaminophen 325 MG Tab PO PRN ×2 (08:21→17:00)
[2019-08-18] MEDS: Enoxaparin 40 MG/0.4 ML Syringe SUBCUT SCH (09:37)
[2019-08-18] MEDS: Ibuprofen 600 MG Tab PO PRN (21:46)
[2019-08-19] MEDS: Ibuprofen 600 MG Tab PO PRN (05:29)
--- NOTE | 2019-08-19 07:37 | PCM.PNPP ---
- General Info Date of Service: 08/19/19 Functional Status: Reports: Pain Controlled, Tolerating Diet, Ambulating, Urinating - Review of Systems General: Reports: No Symptoms Pulmonary: Reports: No Symptoms Cardiovascular: Reports: No Symptoms Gastrointestinal: Reports: No Symptoms Genitourinary: Reports: No Symptoms Musculoskeletal: Reports: No Symptoms Neurological: Reports: No Symptoms Psychiatric: Reports: No Symptoms - Patient Data Vital Signs - Most Recent: Last Vital Signs Temp 36.7 C 08/19/19 03:00 Pulse 69 08/19/19 03:00 Resp 14 08/19/19 03:00 BP 118/83 08/19/19 03:00 Pulse Ox 98 08/19/19 03:00 Weight - Most Recent: 104.689 kg I&O - Last 24 Hours: Intake & Output 08/18/19 08/19/19 08/19/19 22:59 06:59 14:59 Intake Total 480 Balance 480 Med Orders - Current: Current Medications Acetaminophen (Tylenol) 650 mg PO Q4H PRN PRN Reason: mild pain or fever Last Admin: 08/18/19 17:00 Dose: 650 mg Benzocaine/Menthol (Dermoplast Pain Relief [place]) 0 gm TOP ASDIRECTED PRN PRN Reason: Perineal Comfort Measure Last Admin: 08/17/19 21:54 Dose: 1 applic Docusate Sodium (Colace) 100 mg PO BID PRN PRN Reason: Constipation Last Admin: 08/19/19 05:29 Dose: 100 mg Enoxaparin Sodium (Lovenox) 40 mg SUBCUT DAILY [facility] Last Admin: 08/18/19 09:37 Dose: 40 mg Ibuprofen (Motrin) 600 mg PO Q6H PRN PRN Reason: Mild pain or fever Last Admin: 08/19/19 05:29 Dose: 600 mg Witch Jane (Tucks) 1 pad TOP ASDIRECTED PRN PRN Reason: Perineal Comfort Measure Last Admin: 08/17/19 21:54 Dose: 1 applic Discontinued Medications Acetaminophen (Tylenol) 650 mg PO Q4H PRN PRN Reason: Headache Last Admin: 08/17/19 16:45 Dose: 650 mg Acyclovir (Zovirax) 400 mg PO TID [facility] Last Admin: 08/17/19 16:46 Dose: Not Given Calcium Carbonate/Glycine (Tums) 1,000 mg PO Q2H PRN PRN Reason: Indigestion Diphenhydramine HCl (Benadryl) 25 mg IVPUSH Q6H PRN PRN Reason: Itching Ephedrine Sulfate (Ephedrine Sulfate) 5 mg IVPUSH ASDIRECTED PRN PRN Reason: HYPOTENTSION Fentanyl (Sublimaze) 100 mcg EPIDUR Q3H PRN PRN Reason: Pain Last Admin: 08/17/19 05:29 Dose: 100 mcg Fentanyl/Bupivacaine HCl (Fentanyl/Bupivacaine/Ns 2 Mcg-0.125% 250 Ml) 0 ml EPIDUR CONTINUOUS PRN PRN Reason: Pain Fentanyl/Bupivacaine HCl (Fentanyl/Bupivacaine/Ns 2 Mcg-0.125% 100 Ml) 0 ml EPIDUR CONTINUOUS PRN PRN Reason: Pain Last Admin: 08/17/19 17:02 Dose: 100 ml Lactated Ringer's (Ringers, Lactated) 1,000 mls @ 100 mls/hr IV ASDIRECTED JUAN Last Admin: 08/17/19 17:07 Dose: 100 mls/hr Oxytocin/Lactated Ringer's (Pitocin In Lr 10 Units/1,000 Ml) 10 unit in 1,000 mls @ 12 mls/hr IV TITRATE JUAN; Protocol Last Titration: 08/17/19 19:04 Dose: 500 mls/hr Oxytocin/Lactated Ringer's (Pitocin In Lr 10 Units/1,000 Ml) 10 unit in 1,000 mls @ 500 mls/hr IV .CONTINUOUS JUAN Oxytocin/Lactated Ringer's (Pitocin In Lr 20 Units/1,000 Ml) 20 unit in 1,000 mls @ 60 mls/hr IV TITRATE JUAN; Protocol Lidocaine HCl (Xylocaine 1%) 20 ml INJECT ONETIME ONE Stop: 08/17/19 03:04 Last Admin: 08/17/19 19:24 Dose: Not Given Misoprostol (Cytotec) Confirm Administered Dose 600 mcg .ROUTE .STK-MED ONE Stop: 08/17/19 19:13 Last Admin: 08/17/19 19:24 Dose: Not Given Misoprostol (Cytotec) 600 mcg PO ONETIME ONE Stop: 08/17/19 19:17 Last Admin: 08/17/19 19:25 Dose: 600 mcg Nalbuphine HCl (Nubain) 10 mg IVPUSH Q2H PRN PRN Reason: Pain Ondansetron HCl (Zofran) 4 mg IVPUSH Q4H PRN PRN Reason: Nausea/Vomiting Last Admin: 08/17/19 09:05 Dose: 4 mg Sodium Chloride (Saline Flush) 10 ml FLUSH ASDIRECTED PRN PRN Reason: Keep Vein Open - Interaction Disposition, : [place] in Room with Family Infant Interaction: Holding Infant Feeding: Attempted ; Nursed Fair/Poor, Bottle Fed Infant Support Person: - Recovery Exam Fundal Tone: Firm Fundal Level: 1 Fingerbreadths Below Umbilicus Fundal Placement: Midline Lochia Amount: Scant, Small Lochia Color: Rubra/Red Perineum Description: Other (see below) Other Perinuem Description: 2nd degree lac+rep Episiotomy/Laceration: Approximated Bladder Status: Nonpalpable, Voiding Urinary Elimination: Voided - Exam General: Alert, Oriented, Cooperative GI/Abdominal Exam: Soft, Non-Tender Extremities: Normal Inspection Skin: Warm, Dry, Intact - Problem List & Annotations (1) 39 weeks gestation of SNOMED Code(s): 17083894 Code(s): Z3A.39 - 39 WEEKS GESTATION OF Status: Acute Current Visit: Yes (2) Heterozygous factor V Leiden affecting in third trimester, antepartum SNOMED Code(s): 716587845 Code(s): O99.113 - OTH DIS OF BLD/BLD-FORM ORG/IMMUN MECHNSM COMP PREG, 3RD TRI; D68.51 - ACTIVATED PROTEIN C RESISTANCE Status: Acute Current Visit: Yes (3) Vaginal delivery SNOMED Code(s): 575169652 Code(s): O80 - ENCOUNTER FOR FULL-TERM UNCOMPLICATED DELIVERY Status: Acute Current Visit: Yes - Problem List Review Problem List Initiated/Reviewed/Updated: Yes - My Orders Last 24 Hours: My Active Orders 08/18/19 09:00 Enoxaparin [Lovenox] 40 mg SUBCUT DAILY 08/18/19 19:54 Heat Therapy [OM.PC] PRN - Assessment Assessment:: PPD#2 - Plan Plan:: * Routine cares * Breast feeding * Prophylactic lovenox for 6 weeks - will send Rx this AM * Discharge home today
--- NOTE | 2019-08-19 07:39 | PCM.DCSUM1 ---
Discharge Summary - Discharge Data Discharge Date: 08/19/19 Discharge Disposition: Home, Self-Care 01 Condition: Good - Referral to Home Health Primary Care Physician: Tima Neal MD - Discharge Diagnosis/Problem(s) (1) 39 weeks gestation of SNOMED Code(s): 78422093 ICD Code: Z3A.39 - 39 WEEKS GESTATION OF Status: Acute Current Visit: Yes (2) Heterozygous factor V Leiden affecting in third trimester, antepartum SNOMED Code(s): 647676473 ICD Code: O99.113 - OTH DIS OF BLD/BLD-FORM ORG/IMMUN MECHNSM COMP PREG, 3RD TRI; D68.51 - ACTIVATED PROTEIN C RESISTANCE Status: Acute Current Visit: Yes (3) Vaginal delivery SNOMED Code(s): 062319009 ICD Code: O80 - ENCOUNTER FOR FULL-TERM UNCOMPLICATED DELIVERY Status: Acute Current Visit: Yes - Patient Summary/Data Complications: None Consults: None Recommended Follow-up Testing/Procedures: None Hospital Course: 34 y/o at 39 5/7 wks presented with SROM. Was started on pitocin for augmentation. Eventually achieved complete dilation and underwent an uncomplicated . See delivery note. patient started on lovenox and did well with this. Was discharged home on PPD#2 to complete 6 weeks of treatment - Patient Instructions Diet: Regular Diet as Tolerated Activity: As Tolerated Activity, Other: Pelvic Rest for 6 weeks Driving: May Drive Today Showering/Bathing: May Shower Showering/Bathing, Other: May bathe Notify Provider of: Fever, Increased Pain, Swelling and Redness, Drainage, Nausea and/or Vomiting - Discharge Plan *PRESCRIPTION DRUG MONITORING PROGRAM REVIEWED*: No *COPY OF PRESCRIPTION DRUG MONITORING REPORT IN PATIENT ANNA: No Prescriptions/Med Rec: Enoxaparin [Lovenox] 40 mg SUBCUT DAILY #42 syringe Home Medications: Home Meds No122/Iron/Folic Acid [ Multi Tablet] 1 each PO DAILY 08/17/19 [History] Acetaminophen [Tylenol] 650 mg PO Q4H PRN tablet 08/18/19 [Rx] Docusate Sodium [Colace] 100 mg PO BID PRN cap 08/18/19 [Rx] Enoxaparin [Lovenox] 40 mg SUBCUT DAILY #42 syringe 08/18/19 [Rx] Ibuprofen [Motrin] 600 mg PO Q6H PRN tablet 08/18/19 [Rx] Referrals: Alex Gonzalez MD [Physician] - (2 weeks for check ) - Discharge Summary/Plan Comment DC Time >30 min.: No - Patient Data Vitals - Most Recent: Last Vital Signs Temp 36.7 C 08/19/19 03:00 Pulse 69 08/19/19 03:00 Resp 14 08/19/19 03:00 BP 118/83 08/19/19 03:00 Pulse Ox 98 08/19/19 03:00 Weight - Most Recent: 104.689 kg I&O - Last 24 hours: Intake & Output 08/18/19 08/19/19 08/19/19 22:59 06:59 14:59 Intake Total 480 Balance 480 Med Orders - Current: Current Medications Acetaminophen (Tylenol) 650 mg PO Q4H PRN PRN Reason: mild pain or fever Last Admin: 08/18/19 17:00 Dose: 650 mg Benzocaine/Menthol (Dermoplast Pain Relief [place]) 0 gm TOP ASDIRECTED PRN PRN Reason: Perineal Comfort Measure Last Admin: 08/17/19 21:54 Dose: 1 applic Docusate Sodium (Colace) 100 mg PO BID PRN PRN Reason: Constipation Last Admin: 08/19/19 05:29 Dose: 100 mg Enoxaparin Sodium (Lovenox) 40 mg SUBCUT DAILY [facility] Last Admin: 08/18/19 09:37 Dose: 40 mg Ibuprofen (Motrin) 600 mg PO Q6H PRN PRN Reason: Mild pain or fever Last Admin: 08/19/19 05:29 Dose: 600 mg Witch Jane (Tucks) 1 pad TOP ASDIRECTED PRN PRN Reason: Perineal Comfort Measure Last Admin: 08/17/19 21:54 Dose: 1 applic Discontinued Medications Acetaminophen (Tylenol) 650 mg PO Q4H PRN PRN Reason: Headache Last Admin: 08/17/19 16:45 Dose: 650 mg Acyclovir (Zovirax) 400 mg PO TID [facility] Last Admin: 08/17/19 16:46 Dose: Not Given Calcium Carbonate/Glycine (Tums) 1,000 mg PO Q2H PRN PRN Reason: Indigestion Diphenhydramine HCl (Benadryl) 25 mg IVPUSH Q6H PRN PRN Reason: Itching Ephedrine Sulfate (Ephedrine Sulfate) 5 mg IVPUSH ASDIRECTED PRN PRN Reason: HYPOTENTSION Fentanyl (Sublimaze) 100 mcg EPIDUR Q3H PRN PRN Reason: Pain Last Admin: 08/17/19 05:29 Dose: 100 mcg Fentanyl/Bupivacaine HCl (Fentanyl/Bupivacaine/Ns 2 Mcg-0.125% 250 Ml) 0 ml EPIDUR CONTINUOUS PRN PRN Reason: Pain Fentanyl/Bupivacaine HCl (Fentanyl/Bupivacaine/Ns 2 Mcg-0.125% 100 Ml) 0 ml EPIDUR CONTINUOUS PRN PRN Reason: Pain Last Admin: 08/17/19 17:02 Dose: 100 ml Lactated Ringer's (Ringers, Lactated) 1,000 mls @ 100 mls/hr IV ASDIRECTED JUAN Last Admin: 08/17/19 17:07 Dose: 100 mls/hr Oxytocin/Lactated Ringer's (Pitocin In Lr 10 Units/1,000 Ml) 10 unit in 1,000 mls @ 12 mls/hr IV TITRATE JUAN; Protocol Last Titration: 08/17/19 19:04 Dose: 500 mls/hr Oxytocin/Lactated Ringer's (Pitocin In Lr 10 Units/1,000 Ml) 10 unit in 1,000 mls @ 500 mls/hr IV .CONTINUOUS JUAN Oxytocin/Lactated Ringer's (Pitocin In Lr 20 Units/1,000 Ml) 20 unit in 1,000 mls @ 60 mls/hr IV TITRATE JUAN; Protocol Lidocaine HCl (Xylocaine 1%) 20 ml INJECT ONETIME ONE Stop: 08/17/19 03:04 Last Admin: 08/17/19 19:24 Dose: Not Given Misoprostol (Cytotec) Confirm Administered Dose 600 mcg .ROUTE .STK-MED ONE Stop: 08/17/19 19:13 Last Admin: 08/17/19 19:24 Dose: Not Given Misoprostol (Cytotec) 600 mcg PO ONETIME ONE Stop: 08/17/19 19:17 Last Admin: 08/17/19 19:25 Dose: 600 mcg Nalbuphine HCl (Nubain) 10 mg IVPUSH Q2H PRN PRN Reason: Pain Ondansetron HCl (Zofran) 4 mg IVPUSH Q4H PRN PRN Reason: Nausea/Vomiting Last Admin: 08/17/19 09:05 Dose: 4 mg Sodium Chloride (Saline Flush) 10 ml FLUSH ASDIRECTED PRN PRN Reason: Keep Vein Open
[2019-08-19 08:32] VITALS: BP 110/56; PULSE 57
--- NOTE | 2019-08-19 08:44 | PCM48HPAN ---
Post Anesthesia Note - EVALUATION WITHIN 48HRS OF ANESTHETIC Vital Signs in Normal Range: Yes Patient Participated in Evaluation: Yes Respiratory Function Stable: Yes Airway Patent: Yes Cardiovascular Function Stable: Yes Hydration Status Stable: Yes Pain Control Satisfactory: Yes Nausea and Vomiting Control Satisfactory: Yes Mental Status Recovered: Yes Vital Signs: Last Vital Signs Temp 36.6 C 08/19/19 08:31 Pulse 57 L 08/19/19 08:31 Resp 16 08/19/19 08:31 BP 110/56 L 08/19/19 08:31 Pulse Ox 99 08/19/19 08:31
[2019-08-19] MEDS: Enoxaparin 40 MG/0.4 ML Syringe SUBCUT SCH (09:04)
== END 2019-08-19 13:24 | disposition home or self-care (01) | DRG 560 ==
LOC: JD.OBCHECK 02:15 → JD.OB 02:22 → JD.OBCHECK 03:03 → OBSVTOIN 19:03 → JD.OB 19:21
PROVIDERS: ADMIT Obstetrics & Gynecology; ATTEND Obstetrics & Gynecology
PROC: 10E0XZZ Delivery of Products of Conception, External Approach (ICD-10-PCS; principal; 2019-08-17)
PROC: 0KQM0ZZ Repair Perineum Muscle, Open Approach (ICD-10-PCS; 2019-08-17)
PROC: 3E0R3BZ Introduction of Anesthetic Agent into Spinal Canal, Percutaneous Approach (ICD-10-PCS; 2019-08-17)
DX: O99.12 Other diseases of the blood and blood-forming organs and certain disorders involving the immune mechanism complicating childbirth (principal); D68.51 Activated protein C resistance; O99.214 Obesity complicating childbirth; E66.9 Obesity, unspecified; Z79.82 Long term (current) use of aspirin; Z3A.39 39 weeks gestation of pregnancy; Z37.0 Single live birth; Z90.49 Acquired absence of other specified parts of digestive tract; O70.1 Second degree perineal laceration during delivery
CPT/HCPCS: 01967; 36415; 51702; 59025; 59409; 85025; 86592; 86850; 86900; 86901; A9270-GY; J1650; J2405; J2590; J3010; J3490; J7120

== ENCOUNTER 2022-10-16 00:04 | Inpatient (IN) | payer BC ==
[2022-10-16] MEDS: Lactated Ringers 1,000 ML IV SCH ×4 (00:30→02:26)
[2022-10-16] MEDS ORDERED: Nalbuphine 10 MG/0.5 ML Syringe IVPUSH PRN (00:38)
[2022-10-16] MEDS ORDERED: Sodium Chloride 0.9% 10 ML Syringe FLUSH PRN (00:38)
[2022-10-16] MEDS ORDERED: Oxytocin/Lactated Ringers 10 UNIT/1,000 ML BAG IV SCH ×2 (00:45→03:30)
[2022-10-16 00:46] LABS: BASOPHILS ABSOLUTE AUTO 0.02 K/mm3 (0.01-0.08); BASOPHILS PERCENT AUTO 0.2 % (0.1-1.2); EOSINOPHILS ABSOLUTE AUTO 0.04 K/mm3 (0.04-0.36); EOSINOPHILS PERCENT AUTO 0.3 (0.7-5.8); HEMATOCRIT 35.5 % (34.1-44.9); HEMOGLOBIN 12.2 gm/dl (11.2-15.7); IMMATURE GRAN ABSOLUTE AUTO 0.09 K/mm3 (0.00-0.10); IMMATURE GRAN PERCENT AUTO 0.8 % (<=1.0); LYMPHOCYTES ABSOLUTE AUTO 2.54 K/mm3 (1.18-3.74); LYMPHOCYTES PERCENT AUTO 22.1 % (19.3-51.7); MEAN CORPUSCULAR HEMOGLOBIN 29.9 pg (25.6-32.2); MEAN CORPUSCULAR HGB CONC 34.4 g/dl (32.2-35.5); MEAN PLATELET VOLUME 8.7 fl (9.4-12.3); MONOCYTES ABSOLUTE AUTO 0.49 K/mm3 (0.24-0.36); MONOCYTES PERCENT AUTO 4.3 % (4.7-12.5); NEUTROPHILS ABSOLUTE AUTO 8.33 K/mm3 (1.56-6.13); NEUTROPHILS PERCENT AUTO 72.3 % (34.0-71.1); PLATELET COUNT,PLT 191 K/mm3 (182-369); RED BLOOD CELL COUNT 4.08 M/mm3 (3.98-5.22); WHITE BLOOD CELL COUNT,WBC 11.51 K/mm3 (3.98-10.04)
[2022-10-16] MEDS ORDERED: ePHEDrine 50 MG/ML SDV IVPUSH PRN (01:10)
[2022-10-16] MEDS ORDERED: diphenhydrAMINE 50 MG/ML SDV IVPUSH PRN (01:10)
[2022-10-16] MEDS ORDERED: fentaNYL 100 MCG/2 ML SDV EPIDUR PRN (01:10)
[2022-10-16] MEDS ORDERED: Bupivacaine/fentaNYL/NS 100 ML Bag EPIDUR PRN (01:10)
[2022-10-16] MEDS: Ondansetron 4 MG/2 ML SDV IVPUSH PRN ×3 (02:16→12:19)
[2022-10-16] MEDS ORDERED: Sodium Chloride 0.9% 10 ML Syringe FLUSH SCH (09:00)
[2022-10-16] MEDS ORDERED: Benzocaine/Menthol 20%-0.5% Spray 78 GM Cannister TOP PRN (13:09)
[2022-10-16] MEDS ORDERED: Witch Hazel Medicated Pads 40/Jar TOP PRN (13:09)
[2022-10-16] MEDS: Acetaminophen 325 MG Tab PO PRN ×2 (15:15→20:46)
[2022-10-16] MEDS: Ibuprofen 600 MG Tab PO PRN ×2 (15:15→20:45)
[2022-10-17] MEDS: Ibuprofen 600 MG Tab PO PRN ×2 (00:55→06:12)
[2022-10-17 04:13] VITALS: BP 111/54; PULSE 59
[2022-10-17] MEDS: Acetaminophen 325 MG Tab PO PRN (06:13)
== END 2022-10-17 08:21 | disposition home or self-care (01) | DRG 560 ==
LOC: JD.OBCHECK 00:04 → JD.OB 00:50
PROVIDERS: ADMIT Family Medicine; ATTEND Family Medicine
PROC: 10E0XZZ Delivery of Products of Conception, External Approach (ICD-10-PCS; principal; 2022-10-16)
PROC: 10907ZC Drainage of Amniotic Fluid, Therapeutic from Products of Conception, Via Natural or Artificial Opening (ICD-10-PCS; 2022-10-16)
PROC: 0KQM0ZZ Repair Perineum Muscle, Open Approach (ICD-10-PCS; 2022-10-16)
PROC: 3E0R3BZ Introduction of Anesthetic Agent into Spinal Canal, Percutaneous Approach (ICD-10-PCS; 2022-10-16)
PROC: 00HU33Z Insertion of Infusion Device into Spinal Canal, Percutaneous Approach (ICD-10-PCS; 2022-10-16)
DX: O99.214 Obesity complicating childbirth (principal); A60.00 Herpesviral infection of urogenital system, unspecified; O98.32 Other infections with a predominantly sexual mode of transmission complicating childbirth; O77.0 Labor and delivery complicated by meconium in amniotic fluid; O70.1 Second degree perineal laceration during delivery; Z90.49 Acquired absence of other specified parts of digestive tract; Z98.890 Other specified postprocedural states; Z37.0 Single live birth; Z3A.37 37 weeks gestation of pregnancy
CPT/HCPCS: 36415; 51702; 59025; 59409; 85025; 86592; A9270-GY; J2405; J2590; J3490; J7120

== ENCOUNTER 2024-04-23 22:33 | Emergency (ER) | payer BC ==
[2024-04-23] MEDS: Benzonatate 100 MG Cap PO ONE (22:56)
[2024-04-23] MEDS: Acetaminophen/HYDROcodone 108-2.5 MG/5 ML Soln 15 ML UD Cup PO ONE (22:56)
[2024-04-23 23:03] LABS: BASOPHILS PERCENT AUTO 0.4 % (0.0-1.0); EOSINOPHILS ABSOLUTE AUTO 0.3 K/mm3 (0.0-0.4); EOSINOPHILS PERCENT AUTO 4.6 % (0.0-6.0); HEMATOCRIT 32.8 % (37.0-47.0); HEMOGLOBIN 11.3 gm/dl (12.0-16.0); IMMATURE GRAN ABSOLUTE AUTO 0.03 K/mm3 (0.00-0.05); IMMATURE GRAN PERCENT AUTO 0.4 % (0.0-0.4); LYMPHOCYTES ABSOLUTE AUTO 1.8 K/mm3 (1.0-4.8); LYMPHOCYTES PERCENT AUTO 25.5 % (24.0-44.0); MEAN CORPUSCULAR HEMOGLOBIN 27.8 pg (28.0-32.0); MEAN CORPUSCULAR HGB CONC 34.5 g/dl (32.0-36.0); MEAN CORPUSCULAR VOLUME 80.8 fl (83.0-99.0); MEAN PLATELET VOLUME 8.6 fl (9.4-12.3); MONOCYTES ABSOLUTE AUTO 0.3 K/mm3 (0.0-0.8); MONOCYTES PERCENT AUTO 4.6 % (0.0-8.0); NEUTROPHILS ABSOLUTE AUTO 4.7 K/mm3 (1.8-7.7); NEUTROPHILS PERCENT AUTO 64.5 % (41.0-71.0); PLATELET COUNT,PLT 157 K/mm3 (150-400); RED BLOOD CELL COUNT 4.06 M/mm3 (4.10-5.30); WHITE BLOOD CELL COUNT,WBC 7.22 K/mm3 (3.9-11.3)
[2024-04-23 23:13] LABS: APPEARANCE,URINE CLEAR (Clear); BILIRUBIN,URINE NEGATIVE (Negative); COLOR,URINE YELLOW (Yellow); GLUCOSE,URINE NEGATIVE (Negative); KETONES,URINE NEGATIVE (Negative); LEUKOCYTE ESTERASE,URINE NEGATIVE (Negative); NITRITE,URINE NEGATIVE (Negative); OCCULT BLOOD,URINE NEGATIVE (Negative); PH,URINE 6.5 (5.0-8.0); PROTEIN,URINE NEGATIVE (Negative); UROBILINOGEN,URINE 0.2 (0.2-1.0)
[2024-04-23 23:33] LABS: A/G RATIO 0.9 (1-2); ALBUMIN 3.2 g/dl (3.4-5.0); ANION GAP 13.3 (5-15); BILIRUBIN TOTAL 0.4 mg/dL (0.2-1.0); BUN/CREATININE RATIO 11.3 (14-18); CALCIUM 8.9 mg/dL (8.5-10.1); CREATININE 0.8 mg/dL (0.55-1.02); EST CRCL DRUG DOSING (CG) 103.11 mL/min; POTASSIUM,K 3.3 mEq/L (3.5-5.1); PROTEIN TOTAL,TP 6.9 g/dl (6.4-8.2)
[2024-04-23] MEDS: Albuterol 6.7 GM Inhaler INH ONE (23:56)
[2024-04-24 00:49] VITALS: BP 137/67; PULSE 75
== END 2024-04-24 00:48 | disposition home or self-care (01) ==
LOC: JD.ED 22:33
DX: O34.522 Maternal care for prolapse of gravid uterus, second trimester (principal); Z3A.14 14 weeks gestation of pregnancy; Z86.16 Personal history of COVID-19; Z90.49 Acquired absence of other specified parts of digestive tract; Z79.899 Other long term (current) drug therapy
CPT/HCPCS: 36415; 71045; 76815; 80053; 81003; 84702; 85025; 99284; A9270

== ENCOUNTER 2024-10-14 22:56 | Inpatient (IN) | payer BC ==
[2024-10-14] MEDS: Lactated Ringers 1,000 ML IV SCH (23:00)
[2024-10-14] MEDS ORDERED: Lidocaine 1% 50 ML MDV INJECT PRN (23:03)
[2024-10-14] MEDS ORDERED: Ondansetron 4 MG/2 ML SDV IVPUSH PRN (23:03)
[2024-10-14] MEDS ORDERED: Sodium Chloride 0.9% 10 ML Syringe FLUSH PRN (23:03)
[2024-10-14] MEDS ORDERED: Nalbuphine 10 MG/1 ML Vial IVPUSH PRN (23:03)
[2024-10-14 23:11] LABS: BASOPHILS PERCENT AUTO 0.2 % (0.0-1.0); EOSINOPHILS PERCENT AUTO 0.4 % (0.0-6.0); HEMATOCRIT 32.7 % (37.0-47.0); HEMOGLOBIN 11.2 gm/dl (12.0-16.0); IMMATURE GRAN ABSOLUTE AUTO 0.06 K/mm3 (0.00-0.05); IMMATURE GRAN PERCENT AUTO 0.6 % (0.0-0.4); LYMPHOCYTES ABSOLUTE AUTO 2.2 K/mm3 (1.0-4.8); LYMPHOCYTES PERCENT AUTO 21.3 % (24.0-44.0); MEAN CORPUSCULAR HEMOGLOBIN 27.9 pg (28.0-32.0); MEAN CORPUSCULAR HGB CONC 34.3 g/dl (32.0-36.0); MEAN CORPUSCULAR VOLUME 81.3 fl (83.0-99.0); MEAN PLATELET VOLUME 8.5 fl (9.4-12.3); MONOCYTES ABSOLUTE AUTO 0.4 K/mm3 (0.0-0.8); MONOCYTES PERCENT AUTO 4.2 % (0.0-8.0); NEUTROPHILS ABSOLUTE AUTO 7.7 K/mm3 (1.8-7.7); NEUTROPHILS PERCENT AUTO 73.3 % (41.0-71.0); PLATELET COUNT,PLT 159 K/mm3 (150-400); RED BLOOD CELL COUNT 4.02 M/mm3 (4.10-5.30); WHITE BLOOD CELL COUNT,WBC 10.46 K/mm3 (3.9-11.3)
[2024-10-14] MEDS ORDERED: Oxytocin/0.9 % Sodium Chloride 30 UNIT/500 ML BAG IV SCH (23:15)
[2024-10-14] MEDS ORDERED: diphenhydrAMINE 50 MG/ML SDV IVPUSH PRN (23:56)
[2024-10-14] MEDS ORDERED: ePHEDrine 50 MG/ML SDV IVPUSH PRN (23:56)
[2024-10-15] MEDS ORDERED: Lidocaine 1% 10 ML MDV ONE
[2024-10-15] MEDS ORDERED: Lidocaine 1.5% with EPINEPHrine 1:200,000 5 ML Amp ONE
[2024-10-15] MEDS: Bupivacaine/fentaNYL/NS 100 ML Bag EPIDUR PRN (00:24)
[2024-10-15] MEDS ORDERED: Docusate Sodium 100 MG Cap PO PRN (03:03)
[2024-10-15] MEDS ORDERED: Acetaminophen 325 MG Tab PO PRN (03:03)
[2024-10-15] MEDS: Ibuprofen 600 MG Tab PO SCH ×2 (03:43→16:40)
[2024-10-15] MEDS: Benzocaine/Menthol 20%-0.5% Spray 78 GM Cannister TOP PRN (03:44)
[2024-10-15] MEDS: Witch Hazel Medicated Pads 40/Jar TOP PRN (03:44)
[2024-10-15] MEDS ORDERED: Sodium Chloride 0.9% 10 ML Syringe FLUSH SCH (09:00)
[2024-10-16 09:19] VITALS: BP 130/66; PULSE 62
== END 2024-10-16 10:15 | disposition home or self-care (01) | DRG 560 ==
LOC: JD.OBCHECK 22:56 → JD.OB 23:00 → JD.OBCHECK 23:04 → JD.OB 23:04 → OBSVTOIN 10-15 01:29 → JD.OB 10-15 01:30
PROVIDERS: ADMIT Family Medicine; ATTEND Family Medicine
PROC: 10E0XZZ Delivery of Products of Conception, External Approach (ICD-10-PCS; principal; 2024-10-15)
PROC: 10907ZC Drainage of Amniotic Fluid, Therapeutic from Products of Conception, Via Natural or Artificial Opening (ICD-10-PCS; 2024-10-15)
PROC: 3E0R3BZ Introduction of Anesthetic Agent into Spinal Canal, Percutaneous Approach (ICD-10-PCS; 2024-10-15)
PROC: 00HU33Z Insertion of Infusion Device into Spinal Canal, Percutaneous Approach (ICD-10-PCS; 2024-10-15)
DX: O42.02 Full-term premature rupture of membranes, onset of labor within 24 hours of rupture (principal); Z37.0 Single live birth; O99.354 Diseases of the nervous system complicating childbirth; O98.32 Other infections with a predominantly sexual mode of transmission complicating childbirth; O69.81X0 Labor and delivery complicated by cord around neck, without compression, not applicable or unspecified; G43.909 Migraine, unspecified, not intractable, without status migrainosus; Z3A.39 39 weeks gestation of pregnancy; Z86.16 Personal history of COVID-19; Z98.890 Other specified postprocedural states; Z90.49 Acquired absence of other specified parts of digestive tract
CPT/HCPCS: 36415; 51701; 59025; 59409; 85025; 86592; 86850; 86900; 86901; A9270-GY; J2003; J3490; J7120